=== PATIENT | male | born 1970 | race Caucasian/White ===

== ENCOUNTER 2018-02-12 10:24 | Observation (INO) | payer OTHER, SELFPAY ==
[2018-02-12 13:16] VITALS: BMI 27.1
[2018-02-12 14:19] LABS: Troponin I 1.395 ng/mL (< 0.028)
[2018-02-12] MEDS ORDERED: Ondansetron ODT 4 MG TAB PO PRN (14:48)
[2018-02-12] MEDS ORDERED: hydrALAZINE 20 MG/ML VIAL SLOW IVP PRN ×2 (14:48→20:16)
[2018-02-12] MEDS ORDERED: Ondansetron PF 4 MG/2 ML Vial IVP PRN (14:48)
[2018-02-12] MEDS ORDERED: Acetaminophen 500 MG TAB PO PRN (14:48)
[2018-02-12] MEDS ORDERED: Nitroglycerin 0.4 MG TAB (25 Tab Bottle) SL PRN (14:48)
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
[2018-02-12] MEDS ORDERED: Communication Order-Pharmacy FS SCH (17:15)
[2018-02-12 17:16] LABS: Troponin I 2.188 ng/mL (< 0.028)
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
[2018-02-12] MEDS ORDERED: Enoxaparin Sodium 80 MG/0.8 ML SYRINGE SC SCH (21:00)
[2018-02-12] MEDS ORDERED: Atorvastatin Calcium 40 MG TAB PO SCH (21:00)
[2018-02-12] MEDS: Metoprolol Tartrate 25 MG TAB PO SCH (21:19)
[2018-02-12] MEDS: Famotidine 20 MG TAB PO SCH (21:19)
[2018-02-12] MEDS: Nitroglycerin 2% Ointment 1 INCH/1 GM Packet TOP SCH (22:11)
[2018-02-13] MEDS: Sodium Chloride 0.9% 1,000 ML IV SCH ×2 (00:27→09:45)
[2018-02-13] MEDS: Famotidine 20 MG TAB PO SCH (06:14)
[2018-02-13] MEDS: Nitroglycerin 2% Ointment 1 INCH/1 GM Packet TOP SCH ×2 (06:15→13:45)
[2018-02-13] MEDS: Metoprolol Tartrate 25 MG TAB PO SCH (06:15)
[2018-02-13 06:51] LABS: Anion Gap 13 mmol/L (10-20); BUN (Urea Nitrogen) 12 mg/dL (8.9-20.6); Calc. Creatinine Clearance 112 mL/min (70-130); Calcium 9.2 mg/dL (7.8-10.44); Carbon Dioxide 22 mmol/L (22-29); Cardiac Risk 3.8 (Less than 4.5); Chloride 109 mmol/L (98-107); Cholesterol 190 mg/dl (< 200 Desired); Estimated GFR-MDRD 88; Glucose 119 mg/dL (70-105); HDL Cholesterol 50 mg/dL (>60 Neg Risk); LDL Cholesterol, Calculated 98 mg/dL; Potassium 4.4 mmol/L (3.5-5.1); Sodium 140 mmol/L (136-145); Triglycerides 211 mg/dL (Less than 150)
[2018-02-13 07:20] LABS: Band 5 % (5-11); Eosinophils 5 % (0-10); Hemoglobin 15.3 g/dL (14.0-18.0); Lymphocytes 28 % (21-51); MDiff Complete? YES; Mean Corpuscular HGB CONC 34.1 g/dL (32.0-36.0); Mean Corpuscular Hemoglobin 33.4 pg (27.0-31.0); Mean Corpuscular Volume 97.9 fL (78.0-98.0); Mean Platelet Volume 8.2 fL (7.4-10.4); Monocytes 6 % (0-10); Neutrophil 54 % (42-75); Platelet Count 248 thou/uL (130-400); RBC Morphology Normal; Reactive Lymphocytes 1 % (0-10); White Blood Cell (WBC) Count 11.6 thou/uL (4.8-10.8)
[2018-02-13] MEDS ORDERED: Lisinopril/Hydrochlorothiazide 20 mg/12.5 mg Tablet PO SCH (09:00)
[2018-02-13] MEDS ORDERED: Aspirin 325 mg Enteric Coated Tablet PO SCH (09:00)
[2018-02-13] MEDS ORDERED: Fentanyl 100 MCG/2 ML VIAL ONE (11:20)
[2018-02-13] MEDS ORDERED: Midazolam HCl 2 mg/2 ml Vial ONE (11:21)
[2018-02-13] MEDS ORDERED: Heparin 10,000 UNITS/1 ML VIAL ONE (11:48)
[2018-02-13] MEDS ORDERED: Nitroglycerin 100MG/250ML BOT 250 ML ONE (11:49)
[2018-02-13] MEDS ORDERED: TICAGRELOR 90 MG TABLET ONE (11:49)
[2018-02-13] MEDS ORDERED: Morphine 4 MG/ML VIAL SLOW IVP PRN (12:12)
[2018-02-13] MEDS ORDERED: Iopamidol 370 76% 50 ML VIAL FS ONE (15:12)
[2018-02-13] MEDS ORDERED: Iopamidol 370 76% 100 ML VIAL ONE (15:12)
[2018-02-13 15:58] VITALS: BP 118/82; TEMP 97.7
[2018-02-13] MEDS ORDERED: TICAGRELOR 90 MG TABLET PO SCH (21:00)
[2018-02-14] MEDS ORDERED: Aspirin 81 mg Enteric Coated Tablet PO SCH (09:00)
--- NOTE | 2018-02-14 12:50 | DIS ---
DATE OF ADMISSION: 02/12/2018 DATE OF DISCHARGE: 02/13/2018 DISCHARGE DIAGNOSES: 1. Non-ST elevation myocardial infarction. 2. Coronary artery disease, status post percutaneous coronary intervention with drug-eluting stent placement x2 to the obtuse marginal branch. 3. Hypertension. 4. Hyperlipidemia. CONSULTATIONS: Dr. Kulkarni with Cardiology Service. PERTINENT LABORATORY AND X-RAY FINDINGS: Troponin I ranged between 0.33 to 2.19. Total cholesterol 190, triglycerides 211, HDL 50, and LDL 98. CBC showed a white blood cell count of 11.6, hemoglobin 15.3, hematocrit 45, and platelet count 248. Portable chest x-ray dated 02/12/2018, showed no acute cardiopulmonary process. HOSPITAL COURSE: The patient was observed on the telemetry unit after initially presenting with chest pain with associated troponin I elevation consistent with non-ST elevation myocardial infarction. The patient was evaluated by the Cardiology Service, undergoing left heart catheterization on 02/13/2018 with percutaneous coronary intervention to the obtuse marginal two branch with drug-eluting stent placement x2. The patient was also noted with moderate mid LAD disease and ejection fraction of 45%. Current recommendations are to continue dual antiplatelet therapy with Brilinta and aspirin daily. The patient also to continue metoprolol 25 mg b.i.d. in addition to lisinopril. Telemetry monitoring showed sinus mechanism without acute arrhythmia or dysrhythmia. The patient remained clinically stable post catheterization. I have examined the patient at the time of discharge and discussed followup instructions. The patient verbalized understanding and agreement and ready for discharge on 02/13/2018. DISCHARGE MEDICATIONS: 1. Atorvastatin 40 mg p.o. daily. 2. Lisinopril/hydrochlorothiazide 20/12.5 mg 1 tab p.o. daily. 3. Enteric-coated aspirin 81 mg p.o. daily. 4. Metoprolol tartrate 25 mg p.o. b.i.d. 5. Brilinta 90 mg p.o. b.i.d. x1 year. FOLLOWUP: The patient to establish care with [facility] in [place], [place]. The patient will follow up with Dr. Andrew Kulkarni on 03/13/2018 at 9:15 a.m. CONDITION ON DISCHARGE: Stable. ACTIVITY: Ad-bradford. DIET: Heart healthy. CODE STATUS: Full. SPECIAL INSTRUCTIONS: The patient may return to work duties on 02/19/2018. DISPOSITION: Home on 02/13/2018. Job ID: [id number]
== END 2018-02-13 17:00 | disposition home or self-care (01) ==
LOC: EDSTATUS 12:39 → 2SW 13:13
PROVIDERS: ADMIT Family Medicine; ATTEND Family Medicine
PROC: 027035Z Dilation of Coronary Artery, One Artery with Two Drug-eluting Intraluminal Devices, Percutaneous Approach (ICD-10-PCS; principal; 2018-02-13)
PROC: 4A023N7 Measurement of Cardiac Sampling and Pressure, Left Heart, Percutaneous Approach (ICD-10-PCS; 2018-02-13)
PROC: B2111ZZ Fluoroscopy of Multiple Coronary Arteries using Low Osmolar Contrast (ICD-10-PCS; 2018-02-13)
DX: I21.4 Non-ST elevation (NSTEMI) myocardial infarction (principal); I25.10 Atherosclerotic heart disease of native coronary artery without angina pectoris; I16.0 Hypertensive urgency; E78.00 Pure hypercholesterolemia, unspecified; I10 Essential (primary) hypertension; E78.5 Hyperlipidemia, unspecified; F17.290 Nicotine dependence, other tobacco product, uncomplicated; Z91.14 Patient's other noncompliance with medication regimen; Z79.899 Other long term (current) drug therapy
CPT/HCPCS: 36415; 80048; 80061; 84484; 85007; 85027; 85347; 92928; 93005; 93010; 93306; 93458; 96360; 96361; 96372; 99152; 99153; C1760; C1769; C1874; C9600; G0378; J0360; J1644; J1650; J2250; J3010